=== PATIENT | male | born 1995 | race Caucasian/White ===

== ENCOUNTER 2018-08-03 05:38 | Emergency (ER) | payer SELFPAY ==
[~2018-08-03] VITALS: Ht 165.1 cm; Wt 61.2 kg
[2018-08-03 05:39] VITALS: BP 142/83
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
--- NOTE | 2018-08-03 05:52 | NUR ---
Patient discharged with v/s stable. Written and verbal after care instructions given and explained. Patient verbalized understanding. Ambulatory in custody. All questions addressed prior to discharge.
== END 2018-08-03 05:53 ==
LOC: MED 05:38
DX: Z04.1 Encounter for examination and observation following transport accident (principal); V89.2XXA Person injured in unspecified motor-vehicle accident, traffic, initial encounter; Y93.89 Activity, other specified; Y92.89 Other specified places as the place of occurrence of the external cause; Y99.8 Other external cause status
CPT/HCPCS: 99283